=== PATIENT | female | born 1945 | race Caucasian/White ===

== ENCOUNTER 2021-07-13 22:38 | Emergency (ER) | payer SELFPAY ==
[~2021-07-13] VITALS: Ht 144.8 cm; Wt 68.0 kg
[2021-07-13] MEDS ORDERED: ACETAMINOPHEN 325 MG TABLET PO ONE (23:00)
[2021-07-13] MEDS ORDERED: ACETAMINOPHEN ES 500 MG TABLET ONE (23:01)
[2021-07-14 01:32] LABS: BILIRUBIN,URINE NEGATIVE (NEGATIVE); COLOR,URINE YELLOW (YELLOW); LEUKOCYTE ESTERASE ,URINE SMALL (NEGATIVE); NITRITE, URINE POSITIVE (NEGATIVE); PROTEIN,URINE 30 mg/dl (NEGATIVE); UGLUCOSE NEGATIVE (NEGATIVE); UROBILINOGEN,URINE 0.2 EU/dL (0.2)
[2021-07-14] MEDS ORDERED: AZIT250T13 PO (01:35)
[2021-07-14] MEDS ORDERED: AZITHROMYCIN 250 MG TABLET PO ONE (02:00)
[2021-07-14] MEDS ORDERED: AZITHROMYCIN 250 MG TABLET ONE (02:23)
[2021-07-14 03:50] VITALS: BP 128/78
[2021-07-14 06:52] LABS: BACTERIA,URINE Many /HPF (None Seen); CALCIUM OXALATE CRYSTALS,UR Rare /HPF (None Seen); SQUAMOUS EPITHELIAL CELL,UR Few /HPF (None Seen)
== END 2021-07-14 04:14 | disposition home or self-care (01) ==
LOC: ER 22:55
DX: J18.9 Pneumonia, unspecified organism (principal); I10 Essential (primary) hypertension; E78.5 Hyperlipidemia, unspecified; E11.9 Type 2 diabetes mellitus without complications
CPT/HCPCS: 71045; 81001; 87077; 87086; 87186; 87426; 87804; 99284; C9803

== ENCOUNTER 2022-07-13 17:21 | Emergency (ER) | payer MEDICARE, OTHER ==
[~2022-07-13] VITALS: Ht 144.8 cm; Wt 69.4 kg
[~2022-07-13 17:21] MED LIST: AZIT250T13 PO
--- NOTE | 2022-07-13 17:45 | NUR ---
BIB [facility] FROM HOME FOR DIZZINESS,BLOOD SUGAR 133, AOX4, FARSI SPEAKING, NOT IN ANY ACUTE DISTRESS, DENIES PAIN, N/V
--- NOTE | 2022-07-13 17:48 | NUR ---
IV LINE IS ESTABLISHED, BLOOD SPECIMEN COLLECTED AND SENT TO THE LAB. THE LINE IS SALINE LOCKED.
[2022-07-13] MEDS ORDERED: MECLIZINE HCL 25 MG TABLET ONE (17:52)
[2022-07-13] MEDS ORDERED: IV NS 0.9% 1,000 ML BAG IV ONE (18:00)
[2022-07-13] MEDS ORDERED: MECLIZINE HCL 25 MG TABLET PO ONE (18:00)
[2022-07-13 18:02] LABS: BASOPHILS % (AUTO) 0.5 % (0.0-2.0); HEMATOCRIT 37 % (33-45); LYMPHOCYTES # (AUTO) 1.8 K/uL (0.8-4.8); LYMPHOCYTES % (AUTO) 27.6 % (20.0-44.0); MEAN CORPUSCULAR HGB CONC 32 g/dl (31.0-36.0); MEAN CORPUSCULAR VOLUME 80 fL (82-100); MONOCYTES # (AUTO) 0.5 K/uL (0.1-1.30); MONOCYTES % (AUTO) 7.8 % (2.0-12.0); NEUTROPHILS # (AUTO) 3.9 K/uL (1.8-8.9); NEUTROPHILS % (AUTO) 62.1 % (43.0-81.0); PLATELET COUNT (AUTO) 172 K/uL (150-450); RED BLOOD CELL COUNT(AUTO) 4.63 MIL/uL (4.0-5.2); WHITE BLOOD COUNT (AUTO) 6.4 K/uL (4.3-11.0)
--- NOTE | 2022-07-13 18:02 | NUR ---
MEDS GIVEN ORDERED
[2022-07-13 18:31] LABS: CALCIUM, SERUM 10.7 mg/dL (8.5-10.1); CARBON DIOXIDE 27 mmol/L (21-32); CHLORIDE 101 mmol/L (98-107); CREATININE 1.1 mg/dL (0.6-1.3); GLUCOSE 128 mg/dL (74-106); POTASSIUM 4.2 mmol/L (3.5-5.1); SODIUM SERUM 138 mmol/L (136-145); UREA NITROGEN, BLOOD 15 mg/dL (7-18)
[2022-07-13 18:41] LABS: ALANINE AMINOTRANSFERASE 44 U/L (12-78); ALBUMIN 4.2 g/dL (3.4-5.0); ALKALINE PHOSPHATASE 52 U/L (46-116); ASPARTATE AMINOTRANSFERASE 21 U/L (15-37); BILIRUBIN,DIRECT 0.1 mg/dL (0.0-0.2); BILIRUBIN,TOTAL 0.4 mg/dL (0.2-1.0); TOTAL PROTEIN, SERUM 8.4 g/dL (6.4-8.2)
--- NOTE | 2022-07-13 19:49 | NUR ---
LAB AT BEDSIDE FOR 2ND TROP
--- NOTE | 2022-07-13 21:06 | NUR ---
[facility] CALLED FOR BLS GOING BACK TO [facility] PER DISPATCH ETA 5 MIN
--- NOTE | 2022-07-13 21:13 | NUR ---
[facility] [address] AT BEDSIDE FOR TRANSPORT
--- NOTE | 2022-07-13 21:15 | NUR ---
IV removed. Catheter intact and site benign. Pressure and 4x4 applied to site. No bleeding noted.Patient discharged to home in stable condition. Written and verbal after care instructions given. Patient verbalizes understanding of instruction.
[2022-07-14 00:15] VITALS: BP 121/84
== END 2022-07-14 00:16 ==
LOC: ER 18:38
DX: R42 Dizziness and giddiness (principal); I10 Essential (primary) hypertension; E78.5 Hyperlipidemia, unspecified; E11.9 Type 2 diabetes mellitus without complications; Z60.2 Problems related to living alone
CPT/HCPCS: 99285; 96360; 71045; 93005; 85025; 80048; 80076; 36415; 84484 ×2; J8597; J7030